=== PATIENT | female | born 2000 | race Caucasian/White ===

== ENCOUNTER 2020-01-19 14:58 | Emergency (ER) | payer BC ==
[~2020-01-19] VITALS: Ht 167.6 cm; Wt 54.0 kg
[2020-01-19 15:05] VITALS: BP 97/74
[2020-01-19 15:41] LABS: HEMATOCRIT 38.5 % (35.0-45.0); HEMOGLOBIN 13.4 g/dl (12.0-16.0); MEAN CORPUSCULAR HEMOGLOBIN 30.6 PG (27.0-31.0); MEAN CORPUSCULAR HGB CONC 34.7 g/dL (33.0-36.5); MEAN PLATELET VOLUME 8.4 FL (7.4-10.4); PLATELET COUNT 249 X10'3 (140-440); RED BLOOD COUNT 4.37 X10'6 (4.20-5.60); WHITE BLOOD COUNT 10.7 X10'3 (4.5-11.0)
== END 2020-01-19 16:18 | disposition home or self-care (01) ==
LOC: ER 14:58
DX: O26.891 Other specified pregnancy related conditions, first trimester (principal); R10.30 Lower abdominal pain, unspecified; R31.9 Hematuria, unspecified; O21.9 Vomiting of pregnancy, unspecified; O04.80 (Induced) termination of pregnancy with unspecified complications; Z3A.01 Less than 8 weeks gestation of pregnancy
CPT/HCPCS: 36415; 84702; 85027; 99283

== ENCOUNTER 2020-01-19 17:14 | Emergency (ER) | payer BC ==
[~2020-01-19] VITALS: Ht 167.6 cm; Wt 54.0 kg
[2020-01-19] MEDS ORDERED: morphine 4 MG/ML inj SYRINge IM ONE (17:55)
[2020-01-19 18:56] VITALS: BP 100/60
== END 2020-01-19 18:58 | disposition home or self-care (01) ==
LOC: ER 17:15
DX: O26.891 Other specified pregnancy related conditions, first trimester (principal); R10.84 Generalized abdominal pain; Z3A.08 8 weeks gestation of pregnancy
CPT/HCPCS: 96372; 99283; J2270